=== PATIENT | female | born 1975 | race African-American/Black ===

== ENCOUNTER → 2018-01-11 | Outpatient (CLI) | payer BC | LOC: MC.RAD 13:40 | DX: Z12.31 Encounter for screening mammogram for malignant neoplasm of breast (principal) ==

== ENCOUNTER 2018-03-25 18:28 | Emergency (ER) | payer OTHER ==
[~2018-03-25] VITALS: Ht 167.6 cm; Wt 85.9 kg
[2018-03-25 18:36] VITALS: BP 113/67; TEMP 98.6
[2018-03-25] MEDS ORDERED: FLEXERIL 1010 MG/TAB PO (19:16)
[2018-03-25 19:27] VITALS: PULSE 82
== END 2018-03-25 19:28 | disposition home or self-care (01) ==
LOC: COL.ER 18:28
DX: S16.1XXA Strain of muscle, fascia and tendon at neck level, initial encounter (principal); Z90.89 Acquired absence of other organs; Z98.890 Other specified postprocedural states; X50.0XXA Overexertion from strenuous movement or load, initial encounter; Y92.89 Other specified places as the place of occurrence of the external cause
CPT/HCPCS: J1885

== ENCOUNTER 2018-03-28 14:23 | Outpatient (RCR) | payer OTHER ==
[~2018-03-28 14:23] MED LIST: FLEXERIL 1010 MG/TAB PO
== END 2018-06-26 | disposition home or self-care (01) ==
LOC: WSOH
DX: S16.1XXA Strain of muscle, fascia and tendon at neck level, initial encounter (principal); Y04.8XXA Assault by other bodily force, initial encounter; Y93.F9 Activity, other caregiving; Y92.129 Unspecified place in nursing home as the place of occurrence of the external cause; Y99.0 Civilian activity done for income or pay; Z79.899 Other long term (current) drug therapy

== ENCOUNTER → 2018-11-12 | Outpatient (CLI) | payer BC | LOC: COL.RAD 10:52 | DX: Z82.49 Family history of ischemic heart disease and other diseases of the circulatory system (principal) | CPT/HCPCS: Q9967 ==

== ENCOUNTER → 2019-03-12 | Outpatient (CLI) | payer OTHER | LOC: COL.RAD 07:19 | DX: J32.0 Chronic maxillary sinusitis (principal); J34.89 Other specified disorders of nose and nasal sinuses ==

== ENCOUNTER 2019-05-22 23:48 | Emergency (ER) | payer OTHER ==
[~2019-05-22] VITALS: Ht 167.6 cm; Wt 86.4 kg
[2019-05-22 23:54] VITALS: TEMP 97
[2019-05-23] MEDS ORDERED: VALIUM 2MG T2 MG/TAB PO (00:13)
[2019-05-23 00:36] LABS: BASO # 0.1 (0.0-0.2); BASO % 0.7 % (0.0-2.0); EOS # 0.3 (0.0-0.7); EOS % 3.9 % (0-4.0); GRAN # 3.7 (1.4-6.5); GRAN % 43.2 % (42.2-75.2); HEMATOCRIT 40.9 % (37.0-47.0); HEMOGLOBIN 13.6 g/dl (12.5-16.0); LYMPH # 3.8 (1.2-3.4); LYMPH % 44.9 % (20.0-51.0); MEAN CELL VOLUME 98 fl (80.0-100.0); MEAN CORPUSCULAR HEMOGLOBIN 33 pg (27.0-31.0); MEAN CORPUSCULAR HGB CONC 33 g/dl (33.0-37.0); MEAN PLATELET VOLUME 10.6 fl (7.4-10.4); MONO # 0.6 (0.1-0.6); MONO % 6.8 % (1.7-9.3); PLATELET COUNT 200 K/mm3 (130-400); RED BLOOD COUNT 4.19 M/mm3 (4.10-5.30); REDCELL DISTRIBUTION WIDTH-CV 12.6 % (11.5-14.5)
[2019-05-23 01:07] LABS: ALANINE AMINOTRANSFERASE < 6 U/L (9-52); ALBUMIN 4.2 gm/dL (3.5-5.0); ALKALINE PHOSPHATASE 50 U/L (50-136); ANION GAP 13 mmol/L (7-16); AST,SGOT 23 U/L (15-37); BILIRUBIN,TOTAL 0.1 mg/dL (0.0-1.0); BLOOD UREA NITROGEN 16 mg/dL (7-17); CALCIUM 9.6 mg/dL (8.4-10.2); CARBON DIOXIDE 24 mmol/L (22-30); CHLORIDE 106 mmol/L (98-107); CREATININE, serum 0.98 (0.52-1.25); GLUCOSE 100 mg/dL (74-106); POTASSIUM 3.7 mmol/L (3.4-5.0); SODIUM 142 mmol/L (137-145); TOTAL PROTEIN 8.1 gm/dL (6.4-8.2)
[2019-05-23 01:27] LABS: TROPONIN-I < 0.012 ng/mL (0.000-0.035)
[2019-05-23 02:25] VITALS: BP 115/60; PULSE 58
[2019-05-23] MEDS ORDERED: ANTIVERT 25MG25 MG PO (02:25)
== END 2019-05-23 02:25 | disposition home or self-care (01) ==
LOC: COL.ER 23:48
PROVIDERS: Emergency Medicine
DX: R07.81 Pleurodynia (principal); R06.02 Shortness of breath; M79.605 Pain in left leg; M79.604 Pain in right leg
CPT/HCPCS: J1885

== ENCOUNTER 2019-06-13 19:57 | Emergency (ER) | payer OTHER ==
[~2019-06-13] VITALS: Ht 167.6 cm; Wt 86.4 kg
[~2019-06-13 19:57] MED LIST changes: +ANTIVERT 25MG25 MG PO; +VALIUM 2MG T2 MG/TAB PO
[2019-06-13 20:51] LABS: COLLECTION METHOD CLEAN CATCH
[2019-06-13 20:58] LABS: BASO % 0.5 % (0.0-2.0); EOS # 0.2 (0.0-0.7); EOS % 2.9 % (0-4.0); GRAN # 3.7 (1.4-6.5); GRAN % 46.4 % (42.2-75.2); HEMOGLOBIN 13.4 g/dl (12.5-16.0); LYMPH # 3.4 (1.2-3.4); LYMPH % 42.5 % (20.0-51.0); MEAN CELL VOLUME 98 fl (80.0-100.0); MEAN CORPUSCULAR HEMOGLOBIN 33 pg (27.0-31.0); MEAN CORPUSCULAR HGB CONC 34 g/dl (33.0-37.0); MEAN PLATELET VOLUME 10.8 fl (7.4-10.4); MONO # 0.6 (0.1-0.6); MONO % 7.3 % (1.7-9.3); PLATELET COUNT 192 K/mm3 (130-400); RED BLOOD COUNT 4.08 M/mm3 (4.10-5.30); REDCELL DISTRIBUTION WIDTH-CV 12.1 % (11.5-14.5)
[2019-06-13 21:00] LABS: PH 5 (5-8); URINE APPEARANCE Clear; URINE BACTERIA None Seen /hpf; URINE BILIRUBIN Negative (NEGATIVE); URINE BLOOD 1+ (NEGATIVE); URINE COLOR Yellow; URINE GLUCOSE Negative (NEGATIVE); URINE KETONE Negative (NEGATIVE); URINE LEUKOCYTE ESTERASE Negative (NEGATIVE); URINE NITRATE Negative (NEGATIVE); URINE PROTEIN(semi-quant) Negative (NEGATIVE); URINE RBC 0-2 /hpf; URINE UROBILINOGEN Negative (NEGATIVE)
[2019-06-13 21:09] LABS: ALANINE AMINOTRANSFERASE 18 U/L (9-52); ALBUMIN 4.2 gm/dL (3.5-5.0); ALKALINE PHOSPHATASE 51 U/L (50-136); ANION GAP 7 mmol/L (7-16); AST,SGOT 23 U/L (15-37); BILIRUBIN,TOTAL 0.2 mg/dL (0.0-1.0); BLOOD UREA NITROGEN 14 mg/dL (7-17); CALCIUM 9.6 mg/dL (8.4-10.2); CARBON DIOXIDE 27 mmol/L (22-30); CHLORIDE 103 mmol/L (98-107); CREATININE, serum 0.88 (0.52-1.25); GLUCOSE 91 mg/dL (74-106); POTASSIUM 3.8 mmol/L (3.4-5.0); SODIUM 137 mmol/L (137-145)
[2019-06-13 21:11] LABS: C-REACTIVE PROTEIN < 0.5 mg/dL (0.0-0.9)
[2019-06-13 22:55] VITALS: BP 113/68; PULSE 70; TEMP 98.2
== END 2019-06-13 22:59 | disposition home or self-care (01) ==
LOC: COL.ER 19:57
PROVIDERS: Nurse Practitioner
DX: R42 Dizziness and giddiness (principal); R51 Headache; M79.605 Pain in left leg
CPT/HCPCS: J1200; J1885; J2060; J2765; J7030

== ENCOUNTER → 2019-06-18 | Outpatient (CLI) | payer OTHER | LOC: COL.RAD 06-10 13:15 | DX: R42 Dizziness and giddiness (principal) | CPT/HCPCS: A9585 ==

== ENCOUNTER 2019-08-14 11:07 | Emergency (ER) | payer OTHER ==
[~2019-08-14] VITALS: Ht 167.6 cm; Wt 86.4 kg
[2019-08-14 12:11] LABS: BASO % 0.5 % (0.0-2.0); EOS # 0.1 (0.0-0.7); EOS % 1.3 % (0-4.0); GRAN % 61.9 % (42.2-75.2); HEMATOCRIT 40.4 % (37.0-47.0); HEMOGLOBIN 13.2 g/dl (12.5-16.0); LYMPH # 1.9 (1.2-3.4); LYMPH % 30.3 % (20.0-51.0); MEAN CELL VOLUME 99 fl (80.0-100.0); MEAN CORPUSCULAR HEMOGLOBIN 32 pg (27.0-31.0); MEAN CORPUSCULAR HGB CONC 33 g/dl (33.0-37.0); MONO # 0.4 (0.1-0.6); MONO % 5.5 % (1.7-9.3); PLATELET COUNT 202 K/mm3 (130-400); REDCELL DISTRIBUTION WIDTH-CV 12.3 % (11.5-14.5)
[2019-08-14 12:13] LABS: INR 1.1 (0.8-3.0); PROTHROMBIN TIME 12.4 SECONDS (9.7-12.8)
[2019-08-14 12:22] LABS: ALANINE AMINOTRANSFERASE 36 U/L (9-52); ALKALINE PHOSPHATASE 58 U/L (50-136); ANION GAP 6 mmol/L (7-16); AST,SGOT 35 U/L (15-37); BILIRUBIN,TOTAL 0.3 mg/dL (0.0-1.0); BLOOD UREA NITROGEN 12 mg/dL (7-17); CALCIUM 9.3 mg/dL (8.4-10.2); CARBON DIOXIDE 26 mmol/L (22-30); CHLORIDE 105 mmol/L (98-107); GLUCOSE 102 mg/dL (74-106); LIPASE 67 U/L (23-300); POTASSIUM 4.5 mmol/L (3.4-5.0); SODIUM 138 mmol/L (137-145)
[2019-08-14 12:29] LABS: C-REACTIVE PROTEIN < 0.5 mg/dL (0.0-0.9)
[2019-08-14 12:31] LABS: TROPONIN-I < 0.012 ng/mL (0.000-0.035)
[2019-08-14 16:38] VITALS: BP 119/57; PULSE 84
== END 2019-08-14 16:38 | disposition home or self-care (01) ==
LOC: COL.ER 11:07
PROVIDERS: Emergency Medicine
DX: R07.9 Chest pain, unspecified (principal)
CPT/HCPCS: J1885; J7030; Q9967

== ENCOUNTER → 2019-09-12 | Outpatient (CLI) | payer OTHER ==
[~2019-09-12] VITALS: Ht 167.6 cm; Wt 89.1 kg
[2019-09-12 06:37] VITALS: BP 126/67; PULSE 76
[2019-09-12 08:00] VITALS: BP 127/69; PULSE 65
[2019-09-12 08:05] VITALS: BP 131/55; PULSE 129
[2019-09-12 08:06] VITALS: BP 130/55; PULSE 124
[2019-09-12 08:07] VITALS: BP 125/56; PULSE 108
[2019-09-12 08:08] VITALS: BP 122/62; PULSE 98
== END ==
LOC: COL.CARD 08-20 06:45
DX: R07.9 Chest pain, unspecified (principal)
CPT/HCPCS: A9500; J2785

== ENCOUNTER → 2020-12-03 | Outpatient (CLI) | payer BC | LOC: MC.RAD 10:05 | DX: Z12.31 Encounter for screening mammogram for malignant neoplasm of breast (principal) ==

== ENCOUNTER → 2023-01-02 | Outpatient (CLI) | payer OTHER | LOC: MC.RAD 07:56 | DX: N64.89 Other specified disorders of breast (principal) ==